=== PATIENT | female | born 1970 | race Two or more races ===

== ENCOUNTER 2018-09-29 20:58 | Emergency (ER) | payer SELFPAY ==
[~2018-09-29] VITALS: Ht 165.1 cm; Wt 130.0 kg
[2018-09-29 23:32] LABS: BASOPHILS % 0.8 % (0.0-2.0); EOSINOPHILS % 2.5 % (0.0-5.0); HEMATOCRIT. 42.2 % (36.0-48.0); HEMOGLOBIN. 14.1 g/dL (12.0-16.0); MEAN CORPUSCULAR HEMOGLOBIN 30.6 pg (28.0-32.0); MEAN CORPUSCULAR VOLUME 91.7 fL (81.0-99.0); MEAN PLATELET VOLUME 10.4 fl (7.4-10.4); MONOCYTES % 10.5 % (2.0-8.0); NEUTROPHILS % 54.2 % (40.0-76.0); PLATELET 237 x1000/uL (130-400); RED CELL DISTRIBUTION WIDTH 14.5 % (11.6-14.6)
[2018-09-29 23:37] LABS: CLARITY URINE CLEAR (CLEAR); COLOR URINE DARK YELLOW (YELLOW); KETONES URINE 3+ (NEGATIVE); LEUKOCYTE ESTERASE URINE 1+ (NEGATIVE); NITRITE URINE NEGATIVE (NEGATIVE); OCCULT BLOOD URINE NEGATIVE (NEGATIVE); PROTEIN URINE 1+ (NEGATIVE); SPECIFIC GRAVITY URINE 1.036 (1.005-1.030)
[2018-09-29 23:39] LABS: CHLORIDE 106 mEq/L (98-107)
[2018-09-29 23:44] LABS: ETHANOL BLOOD < 10 mg/dL
[2018-09-29 23:45] LABS: AMMONIA 32 uMol/L (<32)
[2018-09-29 23:55] LABS: HCG SCREEN NEGATIVE
[2018-09-30 00:16] LABS: *AMPHETAMINES SCREEN URINE NEGATIVE (NEGATIVE); *BARBITURATES SCREEN URINE NEGATIVE (NEGATIVE); *BENZODIAZEPINES SCREEN URINE NEGATIVE (NEGATIVE)
[2018-09-30 00:17] LABS: *COCAINE SCREEN URINE NEGATIVE (NEGATIVE); CANNABINOID URINE SCREEN NEGATIVE (NEGATIVE); METHADONE URINE SCREEN NEGATIVE (NEGATIVE); OPIATES URINE SCREEN NEGATIVE (NEGATIVE); PHENCYCLIDINE URINE SCREEN NEGATIVE (NEGATIVE)
[2018-09-30] MEDS ORDERED: CEPHALEXIN 250MG CAPSULE PO ONE (02:00)
[2018-09-30] MEDS ORDERED: CEPHALEXIN 250MG CAPSULE PO SCH (06:00)
[2018-09-30 09:48] VITALS: BP 108/69
== END 2018-09-30 09:51 | disposition home or self-care (01) ==
LOC: ER 20:58
DX: A46 Erysipelas (principal); R46.2 Strange and inexplicable behavior
CPT/HCPCS: 36415; 70450; 80053; 80305; 80307; 80329; 81003; 82140; 82962; 84703; 85025; 99285; G0482